=== PATIENT | male | born 1980 | race African-American/Black ===

== ENCOUNTER 2025-04-30 13:58 | Emergency (ER) | payer MEDICAID ==
[~2025-04-30] VITALS: Ht 188 cm; Wt 100.0 kg
[2025-04-30 14:05] VITALS: O2SAT 97
[2025-04-30] MEDS ORDERED: KETOROLAC 15MG/ML VIAL IV ONE (14:15)
[2025-04-30] MEDS ORDERED: LIDOCAINE 5% PATCH TOP SCH (14:15)
[2025-04-30] MEDS ORDERED: ACETAMINOPHEN 325MG TABLET PO ONE (14:15)
[2025-04-30] MEDS: KETOROLAC 15MG/ML VIAL IV SCH (16:07)
[2025-04-30] MEDS: ACETAMINOPHEN 325MG TABLET PO SCH (16:07)
[2025-04-30] MEDS: LIDOCAINE 5% PATCH TOP SCH ×2 (16:07→16:17)
[2025-04-30] MEDS ORDERED: LIDO700A30 TP (16:18)
[2025-04-30] MEDS ORDERED: CYCL10TA21 MT (16:18)
[2025-04-30 16:55] VITALS: BP 146/86; PULSE 77; RESP 14; TEMP 36.9; O2SAT 98
[2025-05-02] MEDS ORDERED: TAMSULOSIN (05:10)
== END 2025-04-30 16:56 | disposition home or self-care (01) ==
LOC: ER 13:58
DX: M62.838 Other muscle spasm (principal); V89.2XXA Person injured in unspecified motor-vehicle accident, traffic, initial encounter; Y93.89 Activity, other specified; Y92.410 Unspecified street and highway as the place of occurrence of the external cause; Y99.8 Other external cause status
CPT/HCPCS: 73030; 70450; 72125; 96374; 99285; J1885; Z7610 ×2; A4606